=== PATIENT | male | born 1945 | race Caucasian/White ===

== ENCOUNTER → 2023-07-24 10:15 | Outpatient (REF) | payer MEDICARE, OTHER, SELFPAY | LOC: DHCBC/DCA 10:15 | PROVIDERS: ATTENDING PHYSICIAN Nurse Practitioner; FAMILY PHYSICIAN Family Medicine | DX: R07.9 Chest pain, unspecified (principal) | CPT/HCPCS: 78452; 93017; A9500; J2785 ==

== ENCOUNTER 2023-08-06 05:57 | Day surgery (SDC) | payer MEDICARE, OTHER, SELFPAY ==
[2023-08-01 11:14] VITALS: BMI 27.8
[2023-08-06] VITALS (9 sets, daily range): BP systolic 94–155; BP diastolic 58–88; BMI 26.7
[2023-08-06] MEDS: NSS 253 ML IV (06:40)
[2023-08-06] MEDS: LOW STRENGTH ASPIRIN 324 MG PO (07:25)
--- NOTE | 2023-08-06 09:35 | ITS.CL.CATH ---
[facility] - Catheterization
Cardiac Catheterization
Procedure Report:
CARDIAC CATHETERIZATION REPORT
Date of Procedure: 08/06/2023
Referring: Alejandro Galvez M.D.
INDICATION: Chest discomfort, abnormal stress test.
PROCEDURE:
1. Left heart catheterization.
2. Coronary angiography.
ACCESS:
6 [place] right common femoral artery using a modified Seldinger technique with a micropuncture kit under ultrasound guidance.
CATHETERS:
1. 5 [place] JR4.
2. 5 [place] JL 4.
HEMODYNAMIC DATA
Weight (kg): 84.3
AO (s/d/x, mmHg): 170/87/120
LV (s/x mmHg): 170/16
LEFT VENTRICULOGRAPHY: Not performed.
CORONARY ANGIOGRAPHY
Dominance: Right.
Left Main: Short, bifurcating vessel. There is no coronary artery disease.
LAD: Normal size vessel giving rise to 3 small diagonals. There is no significant coronary artery disease in the LAD proper. The first diagonal is a small, 1 mm vessel and may have a 40-50% ostial lesion, but appears unchanged and unobstructive
compared to prior angiogram.
Ramus: Congenitally absent.
Circumflex: Normal size, nondominant vessel giving rise to 2 marginals. OM1 is a large marginal supplying nearly the entire lateral wall. There are minor luminal irregularities in the origin of the vessel. OM 2 is a small, 1.5 mm vessel.
RCA: Normal size, dominant vessel. There is no coronary artery disease.
INTERVENTION(S)
None.
Closure Device: 6 [place] Angio-Seal.
Radiation (mGy): 334.87
DAP (cm2.Gy): 23.9413
Fluoroscopy time (minutes): 2.6
Sedation time (minutes): 36
CONCLUSIONS
1. Right dominant circulation with a possible 40-50% lesion in the ostium of a small D1, luminal irregularities in the origin of the large OM1, but overall unchanged from prior angiogram in 2020.
2. Mildly elevated filling pressures (LVEDP = 16 mmHg at 84.3 kg).
3. Apparent right radial artery that deviates onto the dorsum of the right forearm, unapproachable for cannulation.
RECOMMENDATIONS:
1. Expectant management after cardiac catheterization via right common femoral approach.
2. Limited weight bearing for one week.
3. Aggressive risk factor modification.
4. Consider gentle diuresis given mildly elevated filling pressures.
5. Consider other etiologies of exertional symptoms, including endothelial dysfunction (though no slow flow at the moment).
6. Hypertension control.
7. All further cardiac catheterizations should be performed via femoral approach given the apparent nature of the radial artery.
Copy to: Alejandro Galvez M.D., Kaylie Torres M.D.
Eliazar Moreno DO, FACC, FACP
[2023-08-06] MEDS: NSS 1000 IV (09:40)
== END 2023-08-06 12:35 | disposition home or self-care (01) ==
LOC: CATH 05:57
PROVIDERS: ATTENDING PHYSICIAN Internal Medicine Cardiovascular Disease; FAMILY PHYSICIAN Family Medicine; OTHER PHYSICIAN Internal Medicine
DX: I25.10 Atherosclerotic heart disease of native coronary artery without angina pectoris (principal); I25.2 Old myocardial infarction; R07.89 Other chest pain; R94.39 Abnormal result of other cardiovascular function study; I48.0 Paroxysmal atrial fibrillation; I10 Essential (primary) hypertension; E78.5 Hyperlipidemia, unspecified; I49.5 Sick sinus syndrome; Z95.0 Presence of cardiac pacemaker; K21.9 Gastro-esophageal reflux disease without esophagitis; J44.9 Chronic obstructive pulmonary disease, unspecified; Z79.01 Long term (current) use of anticoagulants; Z87.891 Personal history of nicotine dependence
CPT/HCPCS: 93458; C1760; C1894; Q9967

== ENCOUNTER → 2024-09-09 08:15 | Outpatient (REF) | payer MEDICARE, OTHER, SELFPAY ==
[2024-09-09 09:33] LABS: % Basophils 1.3 % (0-2); % Eosinophils 6.3 % (0-6); % Immature Granulocytes 0.2 % (0-0.5); % Lymphocytes 31.8 % (20.5-51.1); % Monocytes 11.9 % (1.7-9.3); % Neutrophils 48.5 % (42.2-75.2); Absolute Basophils 0.1 10^3/uL (0-0.2); Absolute Eosinophils 0.4 10^3/uL (0-0.7); Absolute Lymphocytes 1.9 10^3/uL (1.2-3.4); Absolute Monocytes 0.7 10^3/uL (0.1-0.6); Hematocrit 39.1 % (39.0-52.0); Hemoglobin 13.1 g/dL (13.0-18.0); Mean Corp Hgb Conc. 33.5 g/dL (33.0-37.0); Mean Corpuscular Hgb 32.9 pg (27.0-31.0); Mean Corpuscular Volume 98.2 fL (80.0-94.0); Mean Platelet Volume 9.5 fL (7.4-10.4); Nucleated Red Blood Cells % 0 % (-); Platelet Count 170 10^3/uL (130-400); Red Blood Cell Count 3.98 10^6/uL (4.70-6.10); Red Cell Dist. Width 13.4 % (11.5-14.5); White Blood Cell Count 6.1 10^3/uL (4.8-10.8)
[2024-09-09 10:10] LABS: Vitamin D, 25-OH*** 34.8 ng/mL (30-80)
[2024-09-09 10:15] LABS: ALT (SGPT) 22 U/L (0-50); AST (SGOT) 27 U/L (17-59); Albumin 4.3 g/dl (3.5-5.0); Alkaline Phosphatase 62 U/L (38-126); Blood Urea Nitrogen 20 mg/dl (9-20); Calcium 8.7 mg/dl (8.4-10.2); Carbon Dioxide 25 mmol/L (22-30); Chloride 105 mmol/L (98-107); Glucose 96 mg/dl (70-99); HDL Cholesterol 71 mg/dl; LDL Cholesterol, Calculated 57 mg/dl; Potassium 4.3 mmol/L (3.5-5.1); Sodium 139 mmol/L (135-145); Total Bilirubin 0.7 mg/dl (0.2-1.3); Total Cholesterol 138 mg/dl (50-199); Total Protein 6.7 g/dl (6.3-8.2); Triglyceride 50 mg/dl (10-149); Very Low Density Lipoprotein 10 mg/dl (0-30); eGFR > 60.00
[2024-09-09 10:23] LABS: TSH Reflex To Free T4 1.33 uIU/ml (0.47-4.68)
[2024-09-09 10:43] LABS: Vitamin B12 229 pg/ml (239-931)
== END ==
LOC: REG 08:15
PROVIDERS: ATTENDING PHYSICIAN Family Medicine
DX: N26.9 Renal sclerosis, unspecified (principal); Z13.1 Encounter for screening for diabetes mellitus; R53.83 Other fatigue; E78.00 Pure hypercholesterolemia, unspecified; E04.1 Nontoxic single thyroid nodule; E53.8 Deficiency of other specified B group vitamins; E55.9 Vitamin D deficiency, unspecified
CPT/HCPCS: 36415; 80053; 80061; 82306; 82607; 84443; 85025

== ENCOUNTER → 2024-11-07 08:38 | Outpatient (REF) | payer MEDICARE, OTHER, SELFPAY | LOC: HWRCS 08:38 | PROVIDERS: ATTENDING PHYSICIAN Internal Medicine; FAMILY PHYSICIAN Family Medicine | DX: I25.10 Atherosclerotic heart disease of native coronary artery without angina pectoris (principal); I48.0 Paroxysmal atrial fibrillation; I36.1 Nonrheumatic tricuspid (valve) insufficiency | CPT/HCPCS: 93306 ==

== ENCOUNTER → 2025-03-18 09:05 | Outpatient (REF) | payer MEDICARE, OTHER, SELFPAY ==
[2025-03-18 09:51] LABS: Hematocrit 39.9 % (39.0-52.0); Hemoglobin 13.4 g/dL (13.0-18.0); Mean Corp Hgb Conc. 33.6 g/dL (33.0-37.0); Mean Corpuscular Volume 97.8 fL (80.0-94.0); Nucleated Red Blood Cells % 0 % (-); Platelet Count 173 10^3/uL (130-400); Red Cell Dist. Width 13.0 % (11.5-14.5)
[2025-03-18 10:11] LABS: ALT (SGPT) 24 U/L (0-50); AST (SGOT) 31 U/L (17-59); Albumin 4.6 g/dl (3.5-5.0); Alkaline Phosphatase 68 U/L (38-126); Blood Urea Nitrogen 20 mg/dl (9-20); Calcium 8.7 mg/dl (8.4-10.2); Carbon Dioxide 29 mmol/L (22-30); Chloride 100 mmol/L (98-107); Glucose 85 mg/dl (70-99); HDL Cholesterol 89 mg/dl; LDL Cholesterol, Calculated 52 mg/dl; Potassium 4.1 mmol/L (3.5-5.1); Sodium 135 mmol/L (135-145); Total Protein 7.3 g/dl (6.3-8.2); Very Low Density Lipoprotein 15 mg/dl (0-30); eGFR > 60.00
[2025-03-18 11:08] LABS: Microalb - Urine Creatinine 248.500 mg/dl
[2025-03-18 11:10] LABS: Microalbumin, Random Urine 3.4 mg/dl (0.6-1.7)
== END ==
LOC: REG 09:05
PROVIDERS: ATTENDING PHYSICIAN Specialist; FAMILY PHYSICIAN Family Medicine
DX: N26.9 Renal sclerosis, unspecified (principal); Z13.1 Encounter for screening for diabetes mellitus; E78.00 Pure hypercholesterolemia, unspecified; E04.1 Nontoxic single thyroid nodule; R53.83 Other fatigue; N39.0 Urinary tract infection, site not specified
CPT/HCPCS: 36415; 80053; 80061; 82043; 82570; 84156; 84443; 85025

== ENCOUNTER 2025-05-18 12:01 | Inpatient (IN) | payer MEDICARE, OTHER, SELFPAY ==
[2025-05-18] VITALS (10 sets, daily range): BP systolic 95–146; BP diastolic 54–100; BMI 27.2; BMI 26.4
--- NOTE | 2025-05-18 07:58 | ED.GENMED ---
History of Present Illness
General
Chief Complaint: Male Genito-Urinary Symptoms
Time Seen by Provider: 05/18/25 07:57
History of Present Illness
History of Present Illness:
FOCUSED PAST MEDICAL HISTORY
- Pulmonary fibrosis, A-fib on Eliquis
REVIEW OF OLD RECORDS
- Patient had coronary catheter thousand [address] Moreno; in 2019, the patient had a small traumatic subdural hematoma
Note:
CHIEF COMPLAINT(S)
Headache, fever, and symptoms suggestive of a full bladder.
HISTORY OF PRESENT ILLNESS
The patient is an 80-year-old male presenting to the emergency department with a sensation of inability to void. This is associated with a new headache along with some nausea. The reports a fever of 102.9�F this morning, with a low-grade fever
persisting from yesterday afternoon. There is a slight hearing impairment noted, and he forgot his hearing aids. Reports no history of similar less severe headaches but has a previous history of urinary tract infections and an enlarged prostate,
which has been stable under the care of a urologist. No neck pain.
CHRONIC MEDICAL CONDITIONS SIGNIFICANTLY AFFECTING CARE
Enlarged prostate.
MEDICATIONS
Patient is currently taking Eliquis.
PHYSICAL EXAM
General: Alert, but appears slightly uncomfortable, borderline febrile.
Skin: Warm, dry, no rashes.
Head: Normocephalic, atraumatic.
Neck: Supple, trachea midline. No kernig or Brudzinski signs. Normal chin to chest
Eye Ears, Nose, Mouth and Throat: Oral mucosa moist, slight hearing impairment noted.
Cardiovascular: Normal peripheral perfusion, no edema.
Respiratory: Respirations are non-labored, questionable rales heard at the left base.
Gastrointestinal: Mild suprapubic tenderness, nondistended abdomen.
Back: Normal range of motion, normal alignment.
Musculoskeletal: Normal range of motion, normal strength.
Neurological: Alert and oriented to person, place, time, and situation. No focal neurological deficit observed, negative Kernig and Brudzinski signs.
Psychiatric: Cooperative, appropriate mood and affect.
PROBLEM LIST
Acute Problems:
- Headache
- Fever
- Possible urinary tract infection
Chronic Problems:
- Enlarged prostate
PLAN
1. Administer oral acetaminophen and intravenous fluids for rehydration and fever management.
2. Obtain blood work and urine sample to evaluate for urinary tract infection.
3. Conduct a computed tomography (CT) scan of the abdomen to assess for any underlying issues contributing to bladder symptoms.
4. Conduct a chest X-ray to investigate the questionable breath sounds at the left base.
5. Consider administration of a low dose narcotic for pain management and Toradol, subject to patients condition and current medications.
6. Follow up with the patients urologist regarding ongoing management of the enlarged prostate if necessary.
DIFFERENTIAL DIAGNOSIS
The Differential Diagnosis includes, in no particular order and is not limited to:
1. Urinary tract infection
2. Headache secondary to fever
3. Sinusitis
4. Meningitis
5. Prostatitis
6. Pyelonephritis
7. Respiratory infection
8. Bacterial infection
9. Viral infection
10. Dehydration
RADIOLOGY
- CT shows inflammatory changes around the bladder
LABS
- Lactic 1.1 but white count 13.7
UPDATE
-SUMMARY OF ENCOUNTER
The patient, an 80-year-old male, presented to the emergency department with a headache, fever, and sensation of a full bladder. Upon evaluation, signs of a urinary tract infection were evident, supported by CT findings, although no kidney stones
were noted. The patients white blood cell count was elevated, indicating infection. Oxygen levels were slightly low, but the chest X-ray did not reveal any signs of pneumonia. Given the patients age and elevated white blood cell count, it was
determined that hospital admission for intravenous antibiotics was necessary to manage the urinary tract infection and reduce the risk of complications such as sepsis.
DISPOSITION
Admit.
ASSESSMENT
Urinary tract infection with fever and elevated white blood cell count, possible sepsis.
PLAN
The plan includes admitting the patient to the hospital for intravenous antibiotics due to the urinary tract infection and elevated white blood cell count, which poses a higher risk for complications in an elderly male. An internal medicine
physician will be notified for further management, and urology consultation may be considered based on the internal medicine teams assessment. Imaging findings will continue to be monitored, especially concerning any potential signs of a more
significant underlying issue.
INDEPENDENT REVIEW OF LABS AND INTERPRETATION OF TESTS
My independent review of the CT scan indicates signs suggestive of a urinary tract infection, with no evidence of kidney stones. My independent review of the chest X-ray shows no definite signs of pneumonia. The white blood cell count is elevated,
indicative of a possible infection.
MEDICATION RECONCILIATION
Intravenous antibiotics have been administered as part of the patients treatment plan.
MEDICAL DECISION MAKING
1. Number and Complexity of Problems Addressed: Chronic conditions affecting care include an enlarged prostate, and differential diagnosis includes urinary tract infection, headache secondary to fever, sinusitis, meningitis, prostatitis,
pyelonephritis, respiratory infection, bacterial infection, viral infection, and dehydration.
2. Data:
- Category 1: CT scan and chest X-ray independently interpreted. Lab tests reviewed include white blood cell count.
- Category 3: Discussion of management with the internal medicine team regarding hospital admission for intravenous antibiotics and potential urology consultation.
3. Risk: Due to the patients age and elevated white blood cell count, there is a risk of complications such as sepsis. The need for hospital admission for IV antibiotics indicates a higher level of care required for this patient presentation.
DIAGNOSIS
- UTI / borderline sepsis.
- General unwell feeling; temp to 102.9 at home (100.5 here).
- Cath UA 26-30 WBC w/ blood. Nausea; some SOB w/ clear CXR, but sats low 90%'s.
- WBC 13.7. Lactic 1.1
- Said he 'couldn't pee', but initial bladder scan only 15mL.
- CT significant inflammatory changes adjacent to bladder.
- Also has rather severe RUIZ - neg head CT.
- Known to [facility].
- Na 130.
- Gave Rocephin, IV fluids, Tylenol, Dilaudid 0.5mg, Zofran.
Past History
Past History
ED Past Medical History: Arrthythmia (Atrial fib), CAD, COPD, HTN, Hypercholesterolemia, NH, Renal failure and Other (Pulmonary Fibrosis, Lumbar spinal stenosis, cervical DJD, BPH with nocturia, prostatitis, Back pain, )
ED Past Surgical History: Cardiac (Cardiac catheterization with PTCA, Pacemaker), Orthopedic (Elbow tendon/ligament repair) and Other (Cataract extraction)
Social History
Tobacco: Former smoker
Alcohol: None (Scotch 2-3 glasses)
Personal:
Living: with family
Employment: Retired
Family History
Family History: Hypertension and CAD
Phy Exam
Physical Exam
Physical Exam:
See HPI
Course
Orders/Labs/Results
Orders:
Orders
05/18/25 07:41
Bladder Scan- Treatment ONCE
Bladder Scan As Directed
Follow Bladder Retention/Intermittent Cath Algorithm?: Yes
PRN if no void in __ hours: 6
Frequency: Per Retention Algorithm
If Bladder Scan Result >: 400
then:: Straight cath
Straight Cath As Directed
Frequency: Per Retention Algorithm
Additional Instructions: straight cath as needed per acute urinary retention algorithm for 24 hrs
Additional Instructions: for bladder scan greater than 400 mL
05/18/25 08:05
Straight cath- Treatment ONCE
Acetaminophen [Tylenol] 1,000 mg PO NOW STA
HYDROmorphone [Dilaudid] 0.5 mg IV NOW STA
Ondansetron Injectable [Zofran] 4 mg IV NOW STA
05/18/25 08:06
0.9% Sodium Chloride 500 ml [Nss] 500 ml IV BOLUS
CR Chest - 2 Views Urgent
Comment:
Reason For Exam: fever
05/18/25 08:09
CT Abd/pel Without Iv Or Oral Urgent
Comment:
Reason For Exam: abd pain, fever, inability to urinate
CT Head W/o Iv Contrast Urgent
Comment:
Reason For Exam: new severe RUIZ
05/18/25 08:14
Complete Blood Count/With Diff Urgent
Comprehensive Metabolic Panel Urgent
Lactic Acid Q4H
Comment: CANCEL 2nd LACTIC ACID IF 1st LACTIC ACID IS LESS THAN 2
Blood Culture Q30M
[facility] Source: Blood/Venous
Specimen Description:
05/18/25 08:19
Lidocaine 2% [Lidocaine Uro-Jet 2%] 1 syringe .ROUTE .[facility] ONE
05/18/25 08:29
Urinalysis Reflex To Culture Urgent
Date Specimen was Collected: 05/18/25
Time Specimen was Collected: 08:13
Urine Microscopic Reflex Cult Urgent
Urine Culture Urgent
[facility] Source: U
Specimen Description:
Date Specimen was Collected: 05/18/25
Time Specimen was Collected: 08:13
05/18/25 08:35
Blood Culture Q30M
[facility] Source: Blood/Venous
Specimen Description:
05/18/25 08:41
COVID-19 Antigen Routine
Influenza A+B Rapid Molecular Routine
[facility] Source: [facility]
Specimen Description:
05/18/25 08:53
CefTRIAXone [Rocephin] 1,000 mg IV NOW STA
05/18/25 12:15
Lactic Acid Q4H
Comment: CANCEL 2nd LACTIC ACID IF 1st LACTIC ACID IS LESS THAN 2
Abnormal Lab Results
05/18/25 05/18/25
08:14 08:29
WBC 13.7 H 10^3/uL
(4.8-10.8)
RBC 4.17 L 10^6/uL
(4.70-6.10)
Hct 38.8 L %
(39.0-52.0)
MCH 32.6 H pg
(27.0-31.0)
Abs Immat Gran (auto) 0.1 H 10^3/uL
(0-0.05)
Absolute Neuts (auto) 10.7 H 10^3/uL
(1.4-6.5)
Absolute Monos (auto) 1.1 H 10^3/uL
(0.1-0.6)
Neutrophils % 78.4 H %
(42.2-75.2)
Lymphocytes % 12.4 L %
(20.5-51.1)
Sodium 130 L mmol/L
(135-145)
Chloride 95 L mmol/L
(98-107)
BUN 28 H mg/dl
(9-20)
Glucose 112 H mg/dl
(70-99)
Urine Ketones 3+ A
(Negative)
Ur Occult Blood Reflex 4+ A
(Negative)
Urine Nitrite (Reflex) Positive A
(Negative)
Leukocyte Esterase Rfl 3+ A
(Negative)
Urine RBC >100 A /HPF
(0-2)
Urine WBC (Reflex) 26-30 A /HPF
(0-5)
Urine Bacteria (Reflex) Few A
(Negative)
Urine Albumin (Reflex) 3+ A
(Neg - Trace)
05/18/25 08:14
05/18/25 08:14
Vital Signs
Initial and Last Documented VS:
Initial Vital Signs
Temp Pulse Resp BP Pulse Ox
37.6 C 93 18 137/74 96
05/18/25 07:37 05/18/25 07:37 05/18/25 07:37 05/18/25 07:37 05/18/25 07:37
Last Documented Vital Signs
Temp Pulse Resp BP Pulse Ox
38.1 C H 88 18 137/72 92
05/18/25 08:02 05/18/25 08:02 05/18/25 08:02 05/18/25 08:37 05/18/25 09:45
*Pulse Oximetry
SaO2: 96
Oxygen Mode of Delivery: Room air
Patient hypoxic: yes (Borderline hypoxic at time with room air sats of 90 to 96%)
*Critical Care Note
Total Time (30-74mins, 75-104mins- exclusive of procedures): Not Applicable
ED Attending Note
-
Portions of this chart may have been created with voice recognition software.� Occasional wrong word or��sound alike� substitutions may have occurred due to the inherent limitations of voice recognition software.
Discharge Plan
Departure
Prescriptions:
No Action
minoxidil 2.5 MG tablet
7.5 mg PO BID
diazepam 5 MG tablet
5 mg PO BIDPRN PRN (Reason: anxiety)
irbesartan 300 MG tablet
300 mg PO QPM
cholecalciferol (vitamin D3) [Vitamin D3] 25 MCG capsule
25 mcg PO DAILY
Eliquis 5 MG tablet
5 mg PO BID
labetalol 200 MG tablet
400 mg PO BID
torsemide 20 MG tablet
20 mg PO DAILY Qty: 90 5RF
potassium chloride 20 mEq Tablet Extended Release
20 meq PO DAILY
simvastatin [Zocor] 20 mg Tablet
20 mg PO QPM
Trelegy Ellipta 200-62.5-25 mcg Blister With Device
1 inh INHALATION R DAILY
Referrals:
Waqar Stark Jr., [Family Provider, Internal Medicine]
Interventions
Interventions:
*Risk Screen - Suicide Last Done: 05/18/25 07:37
*General Assessment Last Done: 05/18/25 08:03
*Neglect/Abuse Screening Last Done: 05/18/25 08:03
*ED COVID-19 Vaccine History Last Done: 05/18/25 08:03
*ED Influenza Vaccine History Last Done: 05/18/25 08:03
[facility] Fall Risk Assessment Tool Last Done: 05/18/25 08:02
ED-Male Genitourinary Assessment Last Done: 05/18/25 08:03
Discharge Date and Time
Print Language: SINHALA
[2025-05-18] MEDS: NSS 500 IV (08:16)
[2025-05-18] MEDS: TYLENOL 1000 MG PO (08:17)
[2025-05-18] MEDS: ZOFRAN 4 MG IV (08:17)
[2025-05-18] MEDS: DILAUDID 0.5 MG IV (08:17)
[2025-05-18 08:34] LABS: Hematocrit 38.8 % (39.0-52.0); Hemoglobin 13.6 g/dL (13.0-18.0); Mean Corp Hgb Conc. 35.1 g/dL (33.0-37.0); Mean Corpuscular Volume 93.0 fL (80.0-94.0); Nucleated Red Blood Cells % 0 % (-); Platelet Count 186 10^3/uL (130-400); Red Cell Dist. Width 12.2 % (11.5-14.5)
[2025-05-18 08:43] LABS: Urine Character Cloudy (Clear)
[2025-05-18 08:51] LABS: ALT (SGPT) 23 U/L (0-50); AST (SGOT) 29 U/L (17-59); Albumin 4.7 g/dl (3.5-5.0); Alkaline Phosphatase 82 U/L (38-126); Blood Urea Nitrogen 28 mg/dl (9-20); Calcium 8.8 mg/dl (8.4-10.2); Carbon Dioxide 25 mmol/L (22-30); Chloride 95 mmol/L (98-107); Estimated Creatinine Clearance 54 ml/min; Glucose 112 mg/dl (70-99); Potassium 4.4 mmol/L (3.5-5.1); Sodium 130 mmol/L (135-145); Total Protein 7.5 g/dl (6.3-8.2); eGFR > 60.00
[2025-05-18 09:03] LABS: Urine Red Blood Cell >100 /HPF (0-2); Urine White Cell 26-30 /HPF (0-5)
[2025-05-18 09:11] LABS: COVID-19 Antigen Negative (Negative)
[2025-05-18] MEDS: ROCEPHIN 1000 MG IV (09:38)
--- NOTE | 2025-05-18 10:04 | PHANOTE ---
med rec note- [facility]
--- NOTE | 2025-05-18 11:41 | HPS.HSE ---
Family Physician
-
Family Physician: Waqar Stark Jr.
Chief Complaint
-
Fever and inability to pass urine
History of Present Illness
Patient started develop fever last night. This morning he had a sensation of feeling full and inability to void. Today he has hematuria.
Denies any dysuria or frequency prior to today. No recent UTI. He follows with a urologist for BPH but not on any medication as he is not much symptomatic.
He was otherwise in his usual state of health with no recent changes in medication. He has a history of heart disease and follows with local physician allergist immunologist.
Denies any nausea vomiting or abdominal pain.
Denies any shortness of breath at chest pain.
No lightheadedness.
Medical History
Past Medical History
Past Medical History: Reports Arrhythmia (Paroxysmal A-fib), CAD, CHF, HTN, Hypercholesterolemia and Other (BPH)
Additional Past Medical History:
History of pulmonary fibrosis
Past Surgical History: Reports Other (Elbow tendon/ligament repair)
Social History
Tobacco: Non-smoker
Alcohol: None
Drug: None
Personal:
Living: With Family
Family History
Family History: Not pertinent
Allergies / Home Medications
Allergies reflects when Allergies were last updated in [facility].
Home Medications with original date entered in [facility]
Allergy/Medication List:
Allergies
Allergy/AdvReac Type Severity Reaction Status Date / Time
No Known Allergies Allergy Unverified 05/18/25 07:36
Home Medications
diazepam 5 mg tablet 5 mg PO BIDPRN PRN anxiety 05/27/13
minoxidil 2.5 mg tablet 5 mg PO BID 05/27/13
irbesartan 300 mg tablet 300 mg PO QPM 09/20/20
apixaban 5 mg tablet (Eliquis) 5 mg PO BID 05/27/21
cholecalciferol (vitamin D3) 25 mcg (1,000 unit) capsule (Vitamin D3) 25 mcg PO DAILY 05/27/21
labetalol 200 mg tablet 400 mg PO BID 05/27/21
torsemide 20 mg tablet 20 mg PO DAILY #90 tabs 05/27/21
potassium chloride 20 mEq tablet,extended release 20 meq PO DAILY Electrolyte Repletion 08/06/23
fluticasone fur. 200 mcg-umeclid 62.5 mcg-vilant 25 mcg inhalat.powder (Trelegy Ellipta) 1 inh inhalation R DAILY Lung/Breathing Issues 05/18/25
simvastatin 20 mg tablet (Zocor) 20 mg PO QPM High Cholesterol 05/18/25
Review of Systems
-
A 12 point ROS was completed and negative except as noted: Yes
Physical Exam
Vital Signs
Vital Signs
Temp Pulse Resp BP Pulse Ox
100.5 F H 88 18 118/77 91
05/18/25 08:02 05/18/25 08:02 05/18/25 08:02 05/18/25 11:04 05/18/25 11:30
Physical Exam
General: Comfortable
HEENT: Moist mucous membranes
Respiratory: Clear and Non Labored Respirations; No Wheezes, Crackles or Accessory Resp Muscle Use
Cardiac: S1/S2 and Regular Rhythm; No Murmur
GI: Soft, Non Tender, Non Distended and Normal Bowel Sounds
Musculoskeletal: No Edema
Neuro: AO x 3
Psych: Calm
Laboratory Results
-
05/18/25 08:14
05/18/25 08:14
Laboratory Results
Lactic Acid Cancelled 05/18/25 12:15
Total Bilirubin 1.2 mg/dl (0.2-1.3) 05/18/25 08:14
AST 29 U/L (17-59) 05/18/25 08:14
ALT 23 U/L (0-50) 05/18/25 08:14
Alkaline Phosphatase 82 U/L (38-126) 05/18/25 08:14
Data Reviewed
-
CT Scan: Report Reviewed by me (CT head and CT abdomen and pelvis)
Lab Data: Labs Reviewed by me
Impression/Plan
-
Febrile illness with leukocytosis. Clinically suspicious for UTI.
Blood pressure was soft on admission currently stable. Lactic acid normal. No other endorgan dysfunction noted.
With urinary retentive symptoms and hematuria along with UTI will admit patient to hospital.
Start on empirical ceftriaxone and follow culture data.
Hematuria with urinary retentive symptoms.
History of BPH not on meds
Patient was straight cathed in the ER. Continue with straight cath protocol and follow hematuria closely. Might need CBI if were to have any clot retention issues. Hold Eliquis.
Consult urologist. Follow H&H.
History of paroxysmal atrial fibrillation
Clinically in sinus rhythm.
Follow on telemetry
Hold Eliquis with hematuria
Essential hypertension
Hold ARB with hypotension. Continue beta-gemma with parameters. Hold minoxidil.
History of CHF-no evidence clinically of heart failure. Hold torsemide for now.
Hyponatremia with sodium of 130. No prior history of chronic hyponatremia.
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 Check a urine sodium and osmolality.
Will give 1 L of fluid and check a BMP this evening.
History of pulmonary fibrosis-no flare
Continue with Ellipta
Full code
Portions of this chart may have been created with voice recognition software. Occasional wrong word or 'sound alike' substitutions may have occurred due to the inherent limitations of voice recognition software.
--- NOTE | 2025-05-18 12:37 | EDRN ---
Dr Pereyra TT to obtain diet order..
[2025-05-18] MEDS: TYLENOL 650 MG PO ×2 (15:42→21:15)
--- NOTE | 2025-05-18 16:26 | W.PN.URO.CBU ---
Today's Communication / Plan
-
encourage fluids hold eliquis
Assessment / Plan
-
hemorrhagic cystitis in pt on eliquis no stones hydro bladder empty willawait cxs will hold eliquis encourage po in long run needs cysto
Diagnosis
-
Date of Service: May 18, 2025
-
Patient Diagnosis:uti with hemorrhagic cystis due to eliquis
Post Op Day:
Subjective
-
mild dysuria
Objective
-
Vital Signs
Temp Pulse Resp BP Pulse Ox
99.4 F 86 31 138/100 92
05/18/25 11:00 05/18/25 16:15 05/18/25 16:15 05/18/25 15:50 05/18/25 16:15
Intake and Output
05/17/25 05/18/25 05/19/25
06:59 06:59 06:59
Output Total 100 / 100
Balance -100 / -100
Output:
Urine, Voided 100 / 100
Other:
How many times incontinent 1
SMALL amount urine
Laboratory Results
05/18/25 08:14
Review of Systems
-
: Dysuria, Frequency and Bleeding
Physical Exam
-
General - well developed, well nourished, no acute distress
Chest - clear bilaterally
Abdomen - soft, non-tender, positive bowel sounds, no CVAT, no incisional pain or distention
Genitalia - normal
Rectal - normal
Skin - warm & dry with no rash
Neuro - AOx3, no motor deficits
Extremities - no clubbing, no cyanosis, no edema
Incision - clean, dry
Dressing - clean, dry, intact
Counseling
-
encourage po
Care Review
Data Reviewed
Discussed with: Nursing and Family
CT Scan: Image Pers Reviewed
[2025-05-18 16:40] LABS: Blood Urea Nitrogen 23 mg/dl (9-20); Calcium 8.4 mg/dl (8.4-10.2); Carbon Dioxide 26 mmol/L (22-30); Chloride 94 mmol/L (98-107); Estimated Creatinine Clearance 61 ml/min; Glucose 109 mg/dl (70-99); Potassium 4.4 mmol/L (3.5-5.1); Sodium 128 mmol/L (135-145); eGFR > 60.00
[2025-05-18] MEDS: LIPITOR 10 MG PO (16:58)
[2025-05-18] MEDS: NSS 1000 IV (16:58)
--- NOTE | 2025-05-18 17:15 | PTCARENOTE ---
Patient admitted in to room 415-2 AAOx3. Steady gait to ambulate. Bed alarm placed for pt safety tonight. Patient able to make needs know and reports he will ring for OOB assistance. NA 128, Dr. Pereyra notified, IVF stopped. Telemetry monitoring
initiated, SR with PVCs. VSS.
[2025-05-18] MEDS: SPIRIVA RESPIMAT 2.5 MCG INH (17:33)
--- NOTE | 2025-05-18 18:25 | W.PN.UPDATE ---
Update Note
Progress Note Update
Patient request DNR status, states he does not want CPR or intubation if circumstances called for it
[2025-05-18] MEDS: VALIUM 5 MG PO (18:37)
[2025-05-18] MEDS: TRANDATE 400 MG PO (20:05)
[2025-05-18] MEDS: SYMBICORT 160/4.5 MCG INHALER 2 PUFF INH (20:27)
[2025-05-19 03:04] VITALS: BP 113/63
[2025-05-19] MEDS: SPIRIVA RESPIMAT 2.5 MCG 2 PUFF INH (07:17)
[2025-05-19] MEDS: SYMBICORT 160/4.5 MCG INHALER 2 PUFF INH ×2 (07:17→19:50)
[2025-05-19 07:30] VITALS: BP 119/65
[2025-05-19] MEDS: VITAMIN D3 (cholecalciferol) 25 MCG PO (07:41)
[2025-05-19] MEDS: TYLENOL 650 MG PO ×2 (07:41→17:38)
[2025-05-19] MEDS: TRANDATE 400 MG PO (07:41)
[2025-05-19 09:28] LABS: Hematocrit 34.1 % (39.0-52.0); Hemoglobin 11.7 g/dL (13.0-18.0); Mean Corp Hgb Conc. 34.3 g/dL (33.0-37.0); Mean Corpuscular Volume 96.1 fL (80.0-94.0); Platelet Count 150 10^3/uL (130-400); Red Cell Dist. Width 12.5 % (11.5-14.5)
[2025-05-19] MEDS: STERILE WATER FOR INJECTION 10 ML IV (09:46)
[2025-05-19] MEDS: ROCEPHIN 1000 MG IV (09:47)
--- NOTE | 2025-05-19 10:00 | W.PN.URO.CBU ---
Today's Communication / Plan
-
Await urine C&S
---
CT abd/pelvis revealed no large masses, no stones
Will schedule outpatient cystoscopy to complete evaluation
Assessment / Plan
-
Probable hemorrhagic cystitis
BPH
Diagnosis
-
Date of Service: May 19, 2025
-
Patient Diagnosis:
Probable hemorrhagic cystitis
Dysuria
Subjective
-
Voiding with less discomfort
Objective
-
Vital Signs
Temp Pulse Resp BP Pulse Ox
100.3 F 82 20 119/65 92
05/19/25 07:30 05/19/25 07:30 05/19/25 07:30 05/19/25 07:30 05/19/25 07:30
Intake and Output
05/18/25 05/19/25 05/20/25
06:59 06:59 06:59
Intake Total 480 / 480
Output Total 100 / 100
Balance 380 / 380
Intake:
Oral fluids 480 / 480
Output:
Urine, Voided 100 / 100
Other:
How many times incontinent 1
SMALL amount urine
Number of approximated MODERATE 1
amounts of urine
Laboratory Results
05/19/25 09:12
Review of Systems
-
Constitutional: Fatigue
Respiratory: No Symptoms
Cardiac: No Symptoms
Abdomen/GI: No Symptoms
: Bleeding
Musculoskeletal: No Symptoms
Neurological: No Symptoms
Physical Exam
-
General - well developed, well nourished, no acute distress
Abdomen - soft, non-tender
Genitalia - normal
[2025-05-19 10:36] LABS: Blood Urea Nitrogen 21 mg/dl (9-20); Calcium 8.2 mg/dl (8.4-10.2); Carbon Dioxide 27 mmol/L (22-30); Chloride 94 mmol/L (98-107); Estimated Creatinine Clearance 55 ml/min; Glucose 145 mg/dl (70-99); Potassium 4.1 mmol/L (3.5-5.1); Sodium 128 mmol/L (135-145); eGFR > 60.00
--- NOTE | 2025-05-19 10:49 | W.PN.HOSP.TC ---
Today's Communication/Plan
-
Will give a liter of IV fluids and check BMP later today.
Continue with antibiotics and follow culture data.
Continue to hold Eliquis. Follow bladder scans.
Assessment / Plan
Assessment / Plan
Febrile illness with leukocytosis. Clinically suspicious for UTI.
Lactic acid normal. No other endorgan dysfunction noted.
Blood pressure stable.
CW empirical ceftriaxone and follow culture data.
Follow leukocytosis
Hematuria with urinary retentive symptoms.
History of BPH not on meds
CT of the abdomen pelvis Shows no evidence of stones but significant inflammatory changes adjacent to the urinary bladder which is thick-walled.
Hold Eliquis.
Follow H&H.
Urology following
History of paroxysmal atrial fibrillation
Clinically in sinus rhythm.
Follow on telemetry
Hold Eliquis with hematuria
Essential hypertension
Blood pressure readings under goal mostly
Hold ARB with hypotension. Continue beta-gemma with parameters. Hold minoxidil.
History of CHF-no evidence clinically of heart failure. Hold torsemide for now.
Hyponatremia with sodium of 130. No prior history of chronic hyponatremia.
Looked on flake drier side. Urine Na is low and Osm is high - suspect prerenal state
Will try another liter of IV fluids and follow BMP
History of pulmonary fibrosis-no flare
Continue with Ellipta
DNR per patient wishes
Anticipated Discharge: > 48 hours
Subjective/Interval History
-
Date of Service: May 19, 2025
Having fevers on the sweats.
Improved hematuria.
Denies any urinary retention symptoms.
Still having some dysuria.
No abdominal pain no flank pain.
Denies any nausea vomiting.
No shortness of breath or chest pain.
Objective Data
-
Labs:
Laboratory Results
05/19/25
09:12
WBC 18.0 H
Hgb 11.7 L
Hct 34.1 L
Plt Count 150
Sodium 128 L
Potassium 4.1
Chloride 94 L
Carbon Dioxide 27
BUN 21 H
Creatinine 1.1
Glucose 145 H
Calcium 8.2 L
Vital Signs:
Vital Signs
Temp Pulse Resp BP Pulse Ox
100.3 F 82 20 119/65 92
05/19/25 07:30 05/19/25 07:30 05/19/25 07:30 05/19/25 07:30 05/19/25 07:30
I&O
05/18/25 05/19/25 05/20/25
06:59 06:59 06:59
Intake Total 480 / 480
Output Total 100 / 100
Balance 380 / 380
Physical Exam
-
General: Comfortable
Respiratory: Clear to Auscultation and Non Labored Respirations; Negative Accessory Resp Muscle Use
Cardiac: Regular Rhythm and S1/S2; Negative Tachycardic
GI: Soft and Nontender
Genito-urinary: No Costovertebral Tender and Bloody Urine (noted in the urinal - no clots)
Neuro: AO x 3
Psych: Calm; Negative Confused
Data Reviewed
-
Labs: Labs Reviewed by me
[2025-05-19] MEDS: NSS 1000 IV (11:05)
[2025-05-19 11:30] VITALS: BP 146/76
[2025-05-19 15:30] VITALS: BP 143/75
--- NOTE | 2025-05-19 15:56 | CM ---
Patient seen bedside w/ spouse, initial assessment completed. Presented to hospital w/ fever and inability to pass urine.
Patient resides w/ spouse in a 2ST[facility], 2 steps to enter. Patient is independent in all areas. Has additional grab bar and shower chair in bathroom. Denies SNF/HC hx.
PCP: Waqar Stark
Pharmacy: [facility]
Plan: Home, no needs anticipated at this time
[2025-05-19] MEDS: LIPITOR 10 MG PO (17:33)
[2025-05-19] MEDS: VALIUM 5 MG PO (17:39)
[2025-05-19 17:59] LABS: Blood Urea Nitrogen 21 mg/dl (9-20); Calcium 8.2 mg/dl (8.4-10.2); Carbon Dioxide 26 mmol/L (22-30); Chloride 95 mmol/L (98-107); Estimated Creatinine Clearance 67 ml/min; Glucose 133 mg/dl (70-99); Potassium 4.3 mmol/L (3.5-5.1); Sodium 125 mmol/L (135-145); eGFR > 60.00
[2025-05-19 19:19] VITALS: BP 107/55
[2025-05-19] MEDS: TRANDATE PO (20:01)
[2025-05-19 23:26] VITALS: BP 114/79
[2025-05-20 03:03] VITALS: BP 97/60
[2025-05-20 06:00] VITALS: BMI 26.0
[2025-05-20 07:15] VITALS: BP 137/59
[2025-05-20] MEDS: VITAMIN D3 (cholecalciferol) 25 MCG PO (08:04)
[2025-05-20] MEDS: TRANDATE 400 MG PO (08:04)
[2025-05-20] MEDS: DEMADEX 20 MG PO (08:07)
[2025-05-20 08:51] LABS: Hematocrit 35.0 % (39.0-52.0); Hemoglobin 12.0 g/dL (13.0-18.0); Mean Corp Hgb Conc. 34.3 g/dL (33.0-37.0); Mean Corpuscular Volume 98.6 fL (80.0-94.0); Platelet Count 145 10^3/uL (130-400); Red Cell Dist. Width 12.6 % (11.5-14.5)
[2025-05-20] MEDS: SPIRIVA RESPIMAT 2.5 MCG 2 PUFF INH (09:11)
[2025-05-20] MEDS: SYMBICORT 160/4.5 MCG INHALER 2 PUFF INH (09:12)
[2025-05-20 09:29] LABS: Blood Urea Nitrogen 16 mg/dl (9-20); Calcium 8.3 mg/dl (8.4-10.2); Carbon Dioxide 27 mmol/L (22-30); Chloride 98 mmol/L (98-107); Estimated Creatinine Clearance 67 ml/min; Glucose 95 mg/dl (70-99); Potassium 4.0 mmol/L (3.5-5.1); Sodium 132 mmol/L (135-145); eGFR > 60.00
--- NOTE | 2025-05-20 09:38 | W.PN.URO.CBU ---
Today's Communication / Plan
-
Cleared for discharge from standpoint
Would advise 10-14 days pof po Abx
Cystoscopy as outpatient
Assessment / Plan
-
Probable hemorrhagic cystitis: E. coli in urine
BPH
Gross hamturia: resolved
Diagnosis
-
Date of Service: May 20, 2025
-
Patient Diagnosis:
Probable hemorrhagic cystitis: E. coli
Dysuria: resolved
Subjective
-
Feels well
Back to baseline voiding habits
Objective
-
Vital Signs
Temp Pulse Resp BP Pulse Ox
98.8 F 72 16 137/59 97
05/20/25 07:15 05/20/25 09:18 05/20/25 09:18 05/20/25 07:15 05/20/25 09:18
Intake and Output
05/19/25 05/20/25 05/21/25
06:59 06:59 06:59
Intake Total 480 / 480 1200 / 1200
Output Total 100 / 100 1375 / 1375
Balance 380 / 380 -175 / -175
Intake:
Oral fluids 480 / 480 1200 / 1200
Output:
Urine, Voided 100 / 100 1375 / 1375
Other:
How many times incontinent 1
SMALL amount urine
Number of approximated MODERATE 1
amounts of urine
Laboratory Results
05/20/25 06:55
05/20/25 06:55
Review of Systems
-
Constitutional: No Symptoms
Respiratory: No Symptoms
Cardiac: No Symptoms
Abdomen/GI: No Symptoms
: No Symptoms
Physical Exam
-
General - well developed, well nourished, no acute distress
Abdomen - soft, non-tender, no CVAT
Genitalia - normal
[2025-05-20 09:47] LABS: Cortisol, Random 17.7 ug/dl; TSH 2.08 uIU/ml (0.47-4.68)
[2025-05-20] MEDS: STERILE WATER FOR INJECTION 10 ML IV (10:19)
[2025-05-20] MEDS: ROCEPHIN 1000 MG IV (10:19)
[2025-05-20 11:23] VITALS: BP 114/68
--- NOTE | 2025-05-20 14:53 | CM ---
Discharge home today
Met w/ patient bedside. IMM verbally reviewed, copy provided, copy on chart
No CM needs at this time
Plan: Home, no needs
--- NOTE | 2025-05-20 14:56 | W.PN.HOSP.TC ---
Today's Communication/Plan
-
DC
Assessment / Plan
Assessment / Plan
Febrile illness with leukocytosis. Clinically suspicious for UTI.
Lactic acid normal. No other endorgan dysfunction noted.
Blood pressure stable.
UCx Ecoli -sensitivites noted
Follow leukocytosis -improved
No fevers
Switch to oral Augmentin for total of 10d of abx
Hematuria with urinary retentive symptoms.
History of BPH not on meds
CT of the abdomen pelvis Shows no evidence of stones but significant inflammatory changes adjacent to the urinary bladder which is thick-walled.
With tx of UTI resolved hematuria will restart eliquis - pt advised to follow with urology if recurrent hematuria
History of paroxysmal atrial fibrillation
In sinus rhythm.
Essential hypertension
Blood pressure readings under goal mostly
cw ARB . Continue beta-gemma with parameters. Hold minoxidil.
History of CHF-no evidence clinically of heart failure. CW torsemide for now.
Hyponatremia with sodium of 130. No prior history of chronic hyponatremia.
Improved
History of pulmonary fibrosis-no flare
Continue with Ellipta
DNR per patient wishes
Anticipated Discharge: Today
Subjective/Interval History
-
Date of Service: May 20, 2025
Urine has cleared now. No bleeding.
No fevers. No N/V or abdo pain or flank pain.
Denies SOB.
Objective Data
-
Labs:
Laboratory Results
05/20/25
06:55
WBC 12.2 H
Hgb 12.0 L
Hct 35.0 L
Plt Count 145
Sodium 132 L
Potassium 4.0
Chloride 98
Carbon Dioxide 27
BUN 16
Creatinine 0.9
Glucose 95
Calcium 8.3 L
Vital Signs:
Vital Signs
Temp Pulse Resp BP Pulse Ox
98.6 F 66 18 114/68 94
05/20/25 11:23 05/20/25 11:23 05/20/25 11:23 05/20/25 11:23 05/20/25 11:23
I&O
05/19/25 05/20/25 05/21/25
06:59 06:59 06:59
Intake Total 480 / 480 1200 / 1200
Output Total 100 / 100 1375 / 1375
Balance 380 / 380 -175 / -175
Physical Exam
-
General: Comfortable
Respiratory: Clear to Auscultation and Non Labored Respirations; Negative Accessory Resp Muscle Use
Cardiac: Regular Rhythm and S1/S2; Negative Tachycardic
GI: Soft and Nontender
Genito-urinary: Clear Urine
Neuro: AO x 3
Psych: Calm
Data Reviewed
-
Labs: Labs Reviewed by me
== END 2025-05-20 15:32 | disposition home or self-care (01) | DRG 690 ==
LOC: 4 WEST ACU 12:01
PROVIDERS: ADMITTING PHYSICIAN Internal Medicine; EMERGENCY PHYSICIAN Emergency Medicine; FAMILY PHYSICIAN Family Medicine
DX: N30.91 Cystitis, unspecified with hematuria (principal); E87.1 Hypo-osmolality and hyponatremia; N40.1 Benign prostatic hyperplasia with lower urinary tract symptoms; I48.0 Paroxysmal atrial fibrillation; I10 Essential (primary) hypertension; J84.10 Pulmonary fibrosis, unspecified; Z66 Do not resuscitate; Z87.891 Personal history of nicotine dependence; Z79.01 Long term (current) use of anticoagulants; Z87.440 Personal history of urinary (tract) infections; E78.00 Pure hypercholesterolemia, unspecified; H91.90 Unspecified hearing loss, unspecified ear; I25.10 Atherosclerotic heart disease of native coronary artery without angina pectoris; J44.9 Chronic obstructive pulmonary disease, unspecified; M48.061 Spinal stenosis, lumbar region without neurogenic claudication; Z11.52 Encounter for screening for COVID-19
CPT/HCPCS: 70450; 71046; 74176; 80048; 80053; 81003; 81015; 82533; 83605; 83935; 84300; 84443; 85025; 85027; 87040; 87077; 87086; 87186; 87502; 87811; 94640; 96374; 96375; 99285